=== PATIENT | female | born 1970 | race Caucasian/White ===

== ENCOUNTER → 2016-11-01 | Outpatient (CLI) | payer OTHER ==
[~2016-11-01] VITALS: Ht 157.5 cm; Wt 90.7 kg
[~2016-11-01] MED LIST: MOTRIN 800800 MG/TAB PO; MULTIPLE VITAMI1 TA1 PO; VITAMIN D32000 IU PO
[2016-11-01 16:43] VITALS: BP 130/63; PULSE 77
[2016-11-01 17:17] VITALS: BP 130/63; PULSE 77
== END ==
LOC: LIGHT 10:07 → EDBD 16:30
DX: E66.09 Other obesity due to excess calories (principal); Z68.36 Body mass index [BMI] 36.0-36.9, adult